=== PATIENT | male | born 1960 | race Caucasian/White ===

== ENCOUNTER → 2018-09-06 | Outpatient (CLI) | payer OTHER ==
[~2018-09-06] MED LIST: HYDR-2966 PO; HYDR-3104 PO; IBU800 PO; LEVO88TA45 PO; LOR5/325 PO; METF-450 PO; METXR500 PO; NO RTN MEDS; POTT20 PO; SILV20CR2 TP; TRAM-627 PO
--- NOTE | 2018-09-06 10:56 | RADIOLOGY IMAGING REPORT ---
FACILITY: [facility] PATIENT NAME: Bill Esquivel : 1960 MR: [id number] V: [id number] EXAM DATE: ORDERING PHYSICIAN: EDMUNDO CALIX TECHNOLOGIST: Location: [facility] Patient: Bill Esquivel : 1960 Visit/Account:[id number] Date of Sevice: 09/06/2018 LIVER HISTORY: Elevated LFTs COMPARISON: November 10, 2016 FINDINGS: Gallbladder: Unremarkable; no stones or sludge. Liver: The liver parenchyma appears heterogeneous which can be seen with fatty infiltration or other infiltrative process. There is a focal area of decreased echogenicity in the liver adjacent to the g allbladder appears similar to the prior study and may represent an area of focal fatty sparing. Common duct: Normal, 5.7 mm diameter. Pancreas: Obscured by bowel gas Right kidney: Right kidney appears unremarkable as imaged measuring 12.2 cm in length Upper abdominal aorta and IVC: Patent. Ascites: Examination was technically difficult due to patient's body habitus by technologist notation IMPRESSION: Technically difficult examination due to patient's body habitus by technologist notation Coarse echotexture to the liver which can be seen with fatty infiltration or other infiltrative proce ss Focal area of decreased echogenicity in the liver adjacent to the gallbladder appears similar to the prior study and likely represents an area of focal fatty sparing Pancreas obscured by bowel gas Report Dictated By: Rachana West MD at 09/06/2018 10:49 AM Report E-Signed By: Rachana West MD at 09/06/2018 10:53 AM WSN:[email or web address]
== END ==
LOC: US 00:26
PROVIDERS: ATTEND Family Medicine
DX: R94.5 Abnormal results of liver function studies (principal)
CPT/HCPCS: 76705